=== PATIENT | male | born 1965 | race African-American/Black ===

== ENCOUNTER 2016-07-12 09:11 | Emergency (ER) | payer MEDICAID, OTHER ==
[~2016-07-12] VITALS: Ht 185.4 cm; Wt 69.0 kg
[2016-07-12 09:21] VITALS: BP 147/90
== END 2016-07-12 10:19 | disposition home or self-care (01) ==
LOC: ER 10:08
DX: J02.9 Acute pharyngitis, unspecified (principal); I10 Essential (primary) hypertension; F17.200 Nicotine dependence, unspecified, uncomplicated
CPT/HCPCS: 99281

== ENCOUNTER 2018-04-01 14:18 | Emergency (ER) | payer MEDICAID, OTHER ==
[~2018-04-01] VITALS: Ht 188 cm; Wt 116.0 kg
[2018-04-01] MEDS ORDERED: IPRATROPIUM BROMIDE (0.02%) 0.5MG/2.5ML NEB HHN STA (15:19)
[2018-04-01] MEDS ORDERED: ALBUTEROL (0.083%) 2.5MG/3ML NEB HHN STA (15:19)
[2018-04-01] MEDS ORDERED: PREDNISONE 20MG TABLET PO STA (15:19)
[2018-04-01 15:47] LABS: BASOPHILS % 0.5 % (0.0-2.0); EOSINOPHILS % 3.6 % (0.0-5.0); HEMOGLOBIN. 13.7 g/dL (14.0-18.0); LYMPHOCYTES % 7.4 % (20.0-50.0); MEAN CORPUSCULAR HEMOGLOBIN 29.2 pg (28.0-32.0); MEAN CORPUSCULAR VOLUME 87.4 fL (80.0-94.0); MEAN PLATELET VOLUME 8.5 fl (7.4-10.4); MONOCYTES % 8.9 % (2.0-8.0); NEUTROPHILS % 79.6 % (40.0-76.0); PLATELET 152 x1000/uL (130-400); RED CELL DISTRIBUTION WIDTH 13.3 % (11.6-14.6)
[2018-04-01 15:51] LABS: CHLORIDE 101 mEq/L (98-107)
[2018-04-01 18:08] VITALS: BP 164/84
== END 2018-04-01 18:14 | disposition home or self-care (01) ==
LOC: ER 14:18
DX: J20.9 Acute bronchitis, unspecified (principal); I10 Essential (primary) hypertension; L29.8 Other pruritus; F17.210 Nicotine dependence, cigarettes, uncomplicated; Z71.6 Tobacco abuse counseling
CPT/HCPCS: 36415; 71045; 80053; 85025; 87804; 94640; 99284; 99406; J7512; J7611

== ENCOUNTER 2018-05-01 07:21 | Emergency (ER) | payer MEDICAID, OTHER ==
[~2018-05-01] VITALS: Ht 185.4 cm; Wt 116.0 kg
[2018-05-01] MEDS ORDERED: IBUPROFEN 600MG TABLET PO ONE (08:30)
[2018-05-01 09:02] VITALS: BP 169/100
== END 2018-05-01 10:16 | disposition home or self-care (01) ==
LOC: ER 07:51
DX: M25.571 Pain in right ankle and joints of right foot (principal); F17.200 Nicotine dependence, unspecified, uncomplicated; I10 Essential (primary) hypertension
CPT/HCPCS: 73610; 99283

== ENCOUNTER 2018-05-05 08:30 | Emergency (ER) | payer OTHER ==
[~2018-05-05] VITALS: Ht 185.4 cm; Wt 116.0 kg
[2018-05-05 08:40] VITALS: BP 168/115
== END 2018-05-05 12:06 | disposition left against medical advice (07) ==
LOC: ER 08:30
DX: M25.571 Pain in right ankle and joints of right foot (principal); Z53.21 Procedure and treatment not carried out due to patient leaving prior to being seen by health care provider

== ENCOUNTER 2019-02-09 08:34 | Emergency (ER) | payer OTHER ==
[~2019-02-09] VITALS: Ht 185.4 cm; Wt 115.0 kg
[2019-02-09] MEDS ORDERED: VISCOUS LIDOCAINE 2% 15 ML UDC MM ONE (10:45)
[2019-02-09 11:18] VITALS: BP 164/88
== END 2019-02-09 11:18 | disposition home or self-care (01) ==
LOC: ER 08:34
DX: J02.9 Acute pharyngitis, unspecified (principal); R50.9 Fever, unspecified; I10 Essential (primary) hypertension
CPT/HCPCS: 99282; 99283

== ENCOUNTER 2019-03-30 09:09 | Emergency (ER) | payer OTHER ==
[~2019-03-30] VITALS: Ht 185.4 cm; Wt 116.0 kg
[2019-03-30] MEDS ORDERED: ATEN-42 PO (09:21)
[2019-03-30] MEDS ORDERED: IBUPROFEN 600MG TABLET PO ONE (10:45)
[2019-03-30 11:12] LABS: CLARITY URINE CLEAR (CLEAR); COLOR URINE YELLOW (YELLOW); KETONES URINE NEGATIVE (NEGATIVE); LEUKOCYTE ESTERASE URINE NEGATIVE (NEGATIVE); NITRITE URINE NEGATIVE (NEGATIVE); OCCULT BLOOD URINE 1+ (NEGATIVE); PROTEIN URINE NEGATIVE (NEGATIVE); SPECIFIC GRAVITY URINE 1.013 (1.005-1.030)
[2019-03-30 11:27] LABS: *AMPHETAMINES SCREEN URINE NEGATIVE (NEGATIVE); *BARBITURATES SCREEN URINE NEGATIVE (NEGATIVE); *BENZODIAZEPINES SCREEN URINE NEGATIVE (NEGATIVE); *COCAINE SCREEN URINE NEGATIVE (NEGATIVE)
[2019-03-30 11:28] LABS: CANNABINOID URINE SCREEN NEGATIVE (NEGATIVE); METHADONE URINE SCREEN NEGATIVE (NEGATIVE); OPIATES URINE SCREEN NEGATIVE (NEGATIVE)
[2019-03-30 11:36] LABS: PHENCYCLIDINE URINE SCREEN NEGATIVE (NEGATIVE)
[2019-03-30 12:43] VITALS: BP 140/80
== END 2019-03-30 12:44 | disposition home or self-care (01) ==
LOC: ER 09:09
DX: N43.3 Hydrocele, unspecified (principal); N50.82 Scrotal pain; I10 Essential (primary) hypertension; Y04.0XXA Assault by unarmed brawl or fight, initial encounter; Y93.89 Activity, other specified; Y92.89 Other specified places as the place of occurrence of the external cause; Y99.8 Other external cause status
CPT/HCPCS: 76870; 80305; 81003; 93976; 99284

== ENCOUNTER 2022-08-08 09:16 | Emergency (ER) | payer OTHER ==
[~2022-08-08] VITALS: Ht 185.4 cm; Wt 116.0 kg
[~2022-08-08 09:16] MED LIST: ATEN-42 PO
[2022-08-08 09:24] VITALS: BP 187/94
== END 2022-08-08 14:16 | disposition left against medical advice (07) ==
LOC: ER 09:16
DX: Z53.21 Procedure and treatment not carried out due to patient leaving prior to being seen by health care provider (principal)
CPT/HCPCS: 99281

== ENCOUNTER 2023-06-27 20:42 | Emergency (ER) | payer MEDICAID, OTHER ==
[~2023-06-27] VITALS: Ht 182.9 cm; Wt 104.0 kg
[2023-06-27 20:57] VITALS: O2SAT 99
[2023-06-27 21:44] VITALS: BP 123/69; PULSE 74; RESP 20; TEMP 98.4
[2023-06-27] MEDS ORDERED: CEPH500T MT (23:48)
== END 2023-06-28 06:45 | disposition home or self-care (01) ==
LOC: ER 20:42
DX: L03.012 Cellulitis of left finger (principal); L03.116 Cellulitis of left lower limb; I10 Essential (primary) hypertension
CPT/HCPCS: 93971; 99284

== ENCOUNTER 2023-07-02 10:16 | Emergency (ER) | payer MEDICAID ==
[~2023-07-02] VITALS: Ht 185.4 cm; Wt 116.0 kg
[~2023-07-02 10:16] MED LIST changes: +CEPH500T MT
[2023-07-02 10:25] VITALS: TEMP 98.9; O2SAT 99
[2023-07-02 10:46] LABS: BASOPHILS % 0.1 % (0.0-2.0); EOSINOPHILS % 0.1 % (0.0-5.0); HEMATOCRIT. 26.2 % (42.0-52.0); HEMOGLOBIN. 8.8 g/dL (14.0-18.0); LYMPHOCYTES % 8.6 % (20.0-50.0); MEAN CORPUSCULAR HEMOGLOBIN 29.6 pg (28.0-32.0); MEAN CORPUSCULAR HGB CONC 33.7 g/dL (31.0-37.0); MEAN CORPUSCULAR VOLUME 87.7 fL (80.0-94.0); MEAN PLATELET VOLUME 6.6 fl (7.4-10.4); MONOCYTES % 10.7 % (2.0-8.0); NEUTROPHILS % 80.5 % (40.0-76.0); PLATELET 344 x1000/uL (130-400); RED BLOOD CELL COUNT 2.98 mill/uL (4.7-6.1); RED CELL DISTRIBUTION WIDTH 13.4 % (11.6-14.6); WHITE BLOOD COUNT 14.5 x1000/uL (4.5-11.0)
[2023-07-02 11:20] LABS: POTASSIUM 3.3 mEq/L (3.5-5.1)
[2023-07-02 11:21] LABS: CALCIUM 9.6 mg/dL (8.7-10.4)
[2023-07-02 11:26] LABS: CREATININE 2.9 mg/dL (0.6-1.3)
[2023-07-02 12:54] VITALS: BP 119/79; PULSE 106; RESP 16
[2023-07-02] MEDS: VANCOMYCIN 1G PREMIX 200 ML IV STA (12:54)
== END 2023-07-02 18:57 | disposition left against medical advice (07) ==
LOC: ER 10:16 → EDBEDREQ 12:06 → EDBEDREQTM 14:09 → ER 18:57 → CANBEDREQ 07-03 21:28
DX: L03.116 Cellulitis of left lower limb (principal); F17.200 Nicotine dependence, unspecified, uncomplicated; I10 Essential (primary) hypertension; Z86.59 Personal history of other mental and behavioral disorders; Z53.20 Procedure and treatment not carried out because of patient's decision for unspecified reasons
CPT/HCPCS: 99285; 96365; 93971; 96366; 80048; 82962; 85025; 36415; J3370

== ENCOUNTER 2023-07-05 16:17 | Emergency (ER) | payer OTHER, MEDICAID ==
[~2023-07-05] VITALS: Ht 177.8 cm; Wt 90.0 kg
[2023-07-05 16:20] VITALS: O2SAT 95
[2023-07-05 17:08] LABS: EOSINOPHILS % 3.6 % (0.0-5.0); HEMATOCRIT. 23.6 % (42.0-52.0); HEMOGLOBIN. 8.2 g/dL (14.0-18.0); LYMPHOCYTES % 17.4 % (20.0-50.0); MEAN CORPUSCULAR HEMOGLOBIN 30.4 pg (28.0-32.0); MEAN CORPUSCULAR HGB CONC 34.6 g/dL (31.0-37.0); MEAN CORPUSCULAR VOLUME 87.9 fL (80.0-94.0); MEAN PLATELET VOLUME 6.9 fl (7.4-10.4); MONOCYTES % 8.9 % (2.0-8.0); NEUTROPHILS % 69.1 % (40.0-76.0); PLATELET 322 x1000/uL (130-400); RED BLOOD CELL COUNT 2.68 mill/uL (4.7-6.1); RED CELL DISTRIBUTION WIDTH 13.4 % (11.6-14.6); WHITE BLOOD COUNT 8.3 x1000/uL (4.5-11.0)
[2023-07-05] MEDS: FAMOTIDINE 20MG/2ML VIAL IV ONE (17:09)
[2023-07-05] MEDS: DIPHENHYDRAMINE 50MG/ML VIAL IV ONE (17:09)
[2023-07-05] MEDS: METHYLPREDNISOLONE SOD SUCC 125MG/2ML (ACT-O-VIAL) IV ONE (17:09)
[2023-07-05 17:12] LABS: POTASSIUM 3.5 mEq/L (3.5-5.1)
[2023-07-05 17:14] LABS: CALCIUM 8.4 mg/dL (8.7-10.4)
[2023-07-05 17:18] LABS: CREATININE 2.1 mg/dL (0.6-1.3)
[2023-07-05] MEDS: SODIUM CHLORIDE 0.9% 1,000 ML IV ONE (17:48)
[2023-07-05] MEDS ORDERED: TRANEXAMIC ACID 1,000MG/10ML IV ONE (19:45)
[2023-07-05] MEDS: EPINEPHRINE 1:1000 1 MG/ML AMP IM ONE (21:01)
[2023-07-05] MEDS: TRANEXAMIC ACID 1000MG PREMIX 100 ML IV SCH (21:24)
[2023-07-05 21:52] LABS: PARTIAL THROMBOPLASTIN TIME 24.8 sec (23.4-31.0); PROTHROMBIN TIME 11.2 sec (9.6-11.0)
[2023-07-06] MEDS ORDERED: DIPHENHYDRAMINE 25MG CAPSULE PO PRN (08:45)
[2023-07-06] MEDS ORDERED: FAMOTIDINE 20MG/2ML VIAL IV SCH (09:00)
[2023-07-06] MEDS: HYDRALAZINE 20MG/ML VIAL IV PRN (09:05)
[2023-07-06 09:49] VITALS: BP 151/83; PULSE 75; RESP 16; TEMP 98.5
[2023-07-06] MEDS ORDERED: METHYLPREDNISOLONE SOD SUCC 40MG/ML (ACT-O-VIAL) IV SCH (10:00)
== END 2023-07-06 09:50 | disposition left against medical advice (07) ==
LOC: ER 16:17 → EDBEDREQ 21:11 → CANBEDREQ 07-06 09:32 → ER 07-06 09:50
DX: T78.3XXA Angioneurotic edema, initial encounter (principal); N17.9 Acute kidney failure, unspecified; E87.1 Hypo-osmolality and hyponatremia; I10 Essential (primary) hypertension; F20.9 Schizophrenia, unspecified
CPT/HCPCS: 80048; 85025; 85610; 85730; 86850; 86900; 86901; 36415; 71045; 96365; 96372; 96375 ×2; 99291; J1200; J3490 ×2; J2919; J7030; Z7610; J0360

== ENCOUNTER 2023-07-16 18:19 | Emergency (ER) | payer MEDICAID ==
[~2023-07-16] VITALS: Ht 172.7 cm; Wt 91.0 kg
[2023-07-16 18:26] VITALS: BP 132/65; PULSE 68; RESP 18; TEMP 99.4; O2SAT 99
[2023-07-16] MEDS ORDERED: NEOM28.36 TP (19:44)
== END 2023-07-16 19:52 | disposition home or self-care (01) ==
LOC: ER 18:19
DX: L97.529 Non-pressure chronic ulcer of other part of left foot with unspecified severity (principal); L97.519 Non-pressure chronic ulcer of other part of right foot with unspecified severity; I10 Essential (primary) hypertension; Z86.59 Personal history of other mental and behavioral disorders
CPT/HCPCS: 99283

== ENCOUNTER 2023-10-19 15:15 | Emergency (ER) | payer OTHER ==
[~2023-10-19] VITALS: Ht 182.9 cm; Wt 104.5 kg
[~2023-10-19 15:15] MED LIST changes: +NEOM28.36 TP
[2023-10-19 15:32] VITALS: TEMP 97.2; O2SAT 99
[2023-10-19] MEDS ORDERED: metoprolol (15:32)
[2023-10-19] MEDS ORDERED: haloperidol (15:32)
[2023-10-19] MEDS ORDERED: benztropine (15:32)
[2023-10-19] MEDS ORDERED: chlorthalidone (15:32)
[2023-10-19] MEDS ORDERED: lisinopril (15:32)
[2023-10-19] MEDS ORDERED: escitalopram (15:32)
[2023-10-19] MEDS ORDERED: amlodipine (15:32)
[2023-10-19] MEDS ORDERED: zolpidem (15:32)
[2023-10-19] MEDS ORDERED: atorvastatin (15:32)
[2023-10-19] MEDS ORDERED: divalproex sodium (15:32)
[2023-10-19] MEDS ORDERED: VANCOMYCIN 1G PREMIX 200 ML IV STA (15:51)
[2023-10-19] MEDS: SODIUM CHLORIDE 0.9% 1000ML BAG (SEPSIS BOLUS) IV ONE (16:00)
[2023-10-19 16:17] LABS: BASOPHILS % 0.7 % (0.0-2.0); EOSINOPHILS % 7.4 % (0.0-5.0); HEMATOCRIT. 29.4 % (42.0-52.0); HEMOGLOBIN. 9.9 g/dL (14.0-18.0); LYMPHOCYTES % 15.8 % (20.0-50.0); MEAN CORPUSCULAR HEMOGLOBIN 29.5 pg (28.0-32.0); MEAN CORPUSCULAR HGB CONC 33.8 g/dL (31.0-37.0); MEAN CORPUSCULAR VOLUME 87.3 fL (80.0-94.0); MEAN PLATELET VOLUME 7.2 fl (7.4-10.4); NEUTROPHILS % 68.1 % (40.0-76.0); PLATELET 216 x1000/uL (130-400); RED BLOOD CELL COUNT 3.37 mill/uL (4.7-6.1); RED CELL DISTRIBUTION WIDTH 14.8 % (11.6-14.6); WHITE BLOOD COUNT 4.9 x1000/uL (4.5-11.0)
[2023-10-19 16:20] LABS: CHLORIDE 102 mEq/L (98-107); POTASSIUM 3.3 mEq/L (3.5-5.1); SODIUM 135 mEq/L (136-145)
[2023-10-19 16:21] LABS: CALCIUM 9.1 mg/dL (8.7-10.4); CARBON DIOXIDE 29 mEq/L (21-32)
[2023-10-19 16:26] LABS: GLUCOSE 96 mg/dL (70-105); UREA NITROGEN BLOOD 26 mg/dL (9-23)
[2023-10-19 16:27] LABS: PROTHROMBIN TIME 11.4 sec (9.6-11.0); TROPONIN I HIGH SENSITIVITY 8 ng/L (3.0-53)
[2023-10-19 16:28] LABS: ALANINE AMINOTRANSFERASE < 7 IU/L (10-49); ALBUMIN 3.8 g/dL (3.2-4.8); ASPARTATE AMINOTRANSFERASE 12 IU/L (<34)
[2023-10-19 16:29] LABS: BILIRUBIN TOTAL 0.3 mg/dL (0.1-1.0); PROTEIN TOTAL 7.7 g/dL (6.0-8.3)
[2023-10-19 16:30] LABS: CREATININE 1.9 mg/dL (0.6-1.3)
[2023-10-19 16:48] LABS: CLARITY URINE CLEAR (CLEAR); COLOR URINE YELLOW (YELLOW); GLUCOSE URINE NEGATIVE (NEGATIVE); KETONES URINE NEGATIVE (NEGATIVE); LEUKOCYTE ESTERASE URINE NEGATIVE (NEGATIVE); NITRITE URINE NEGATIVE (NEGATIVE); OCCULT BLOOD URINE NEGATIVE (NEGATIVE); PROTEIN URINE NEGATIVE (NEGATIVE); SPECIFIC GRAVITY URINE 1.012 (1.005-1.030)
[2023-10-19] MEDS: PIPERACILLIN/TAZO 3.375G/50ML 50 ML IV STA (17:01)
[2023-10-19] MEDS: ASPIRIN 81MG TABLET PO ONE (17:09)
[2023-10-19] MEDS: TETANUS, DIPHTHERIA, PERTUSSIS VAC/PF 0.5ML (>10YR OLD) IM ONE (17:10)
[2023-10-19 18:30] VITALS: BP 135/67; PULSE 63; RESP 12; O2SAT 100
== END 2023-10-19 16:19 | disposition left against medical advice (07) ==
LOC: ER 15:15 → EDBEDREQ 18:20 → EDBEDREQTM 18:40 → CANBEDREQ 18:51
DX: R55 Syncope and collapse (principal); I95.9 Hypotension, unspecified; N28.9 Disorder of kidney and ureter, unspecified; E86.0 Dehydration; L03.116 Cellulitis of left lower limb; I10 Essential (primary) hypertension; F17.200 Nicotine dependence, unspecified, uncomplicated; Z88.8 Allergy status to other drugs, medicaments and biological substances
CPT/HCPCS: 80053; 81003; 83880; 83605; 85025; 85610; 87040; 87086; 84484; 36415; 84145; 71045; 73610; 90715; 93005; 90471; 96361; 96365; 99285; Z7610 ×2; J2543; J7030

== ENCOUNTER 2024-03-04 14:10 | Emergency (ER) | payer OTHER ==
[~2024-03-04] VITALS: Ht 175.3 cm; Wt 85.0 kg
[~2024-03-04 14:10] MED LIST changes: +amlodipine; +atorvastatin; +benztropine; +chlorthalidone; +divalproex sodium; +escitalopram; +haloperidol; +lisinopril; +metoprolol; +zolpidem
[2024-03-04 14:14] VITALS: O2SAT 99
[2024-03-04 14:25] VITALS: BP 122/60; PULSE 72; RESP 18; TEMP 98.2; O2SAT 100
== END 2024-03-04 20:11 | disposition left against medical advice (07) ==
LOC: ER 14:10
DX: J20.9 Acute bronchitis, unspecified (principal); Z53.21 Procedure and treatment not carried out due to patient leaving prior to being seen by health care provider

== ENCOUNTER 2024-04-10 08:30 | Emergency (ER) | payer OTHER ==
[~2024-04-10] VITALS: Ht 185.4 cm; Wt 115.0 kg
[2024-04-10 08:41] VITALS: O2SAT 100
[2024-04-10] MEDS: IBUPROFEN 600MG TABLET PO ONE (09:42)
[2024-04-10 12:06] VITALS: BP 148/80; PULSE 88; RESP 18; TEMP 36.8; O2SAT 100
[2024-04-11] MEDS ORDERED: NAPR-681 MT (10:52)
== END 2024-04-10 12:11 | disposition home or self-care (01) ==
LOC: ER 08:30
DX: M20.12 Hallux valgus (acquired), left foot (principal); S93.402A Sprain of unspecified ligament of left ankle, initial encounter; F20.9 Schizophrenia, unspecified; I10 Essential (primary) hypertension; J45.909 Unspecified asthma, uncomplicated; X58.XXXA Exposure to other specified factors, initial encounter; Y93.89 Activity, other specified; Y92.89 Other specified places as the place of occurrence of the external cause; Y99.8 Other external cause status
CPT/HCPCS: 73610; 73630; 99284

== ENCOUNTER 2024-04-11 09:13 | Emergency (ER) | payer OTHER ==
[~2024-04-11] VITALS: Ht 172.7 cm; Wt 75.0 kg
[2024-04-11 09:15] VITALS: TEMP 36.8; O2SAT 99
[2024-04-11 10:15] VITALS: BP 153/82; PULSE 94; RESP 16
[2024-04-11] MEDS: IBUPROFEN 600MG TABLET PO ONE (10:15)
[2024-04-11] MEDS ORDERED: NAPR-681 MT (10:52)
== END 2024-04-11 11:01 | disposition home or self-care (01) ==
LOC: ER 09:22
DX: M79.18 Myalgia, other site (principal); F20.9 Schizophrenia, unspecified; I10 Essential (primary) hypertension; J45.909 Unspecified asthma, uncomplicated; Z79.1 Long term (current) use of non-steroidal anti-inflammatories (NSAID)
CPT/HCPCS: 73610; 73630; 99284

== ENCOUNTER 2024-05-05 18:42 | Emergency (ER) | payer OTHER ==
[~2024-05-05] VITALS: Ht 185.4 cm; Wt 91.0 kg
[~2024-05-05 18:42] MED LIST changes: +NAPR-681 MT
[2024-05-05 18:56] VITALS: TEMP 36.8; O2SAT 98
[2024-05-05] MEDS: KETOROLAC 30MG/ML VIAL IM STA (19:43)
[2024-05-05 21:37] LABS: HEMATOCRIT. 29.5 % (42.0-52.0); HEMOGLOBIN. 9.7 g/dL (14.0-18.0); MEAN CORPUSCULAR HEMOGLOBIN 28.8 pg (28.0-32.0); MEAN CORPUSCULAR HGB CONC 32.9 g/dL (31.0-37.0); MEAN CORPUSCULAR VOLUME 87.5 fL (80.0-94.0); MEAN PLATELET VOLUME 7.9 fl (7.4-10.4); PLATELET 209 x1000/uL (130-400); RED BLOOD CELL COUNT 3.37 mill/uL (4.7-6.1); RED CELL DISTRIBUTION WIDTH 15.8 % (11.6-14.6); WHITE BLOOD COUNT 7.3 x1000/uL (4.5-11.0)
[2024-05-05 21:38] LABS: DIFFERENTIAL COMMENT 1
[2024-05-05 21:47] LABS: CARBON DIOXIDE 29 mEq/L (21-32); CHLORIDE 104 mEq/L (98-107); POTASSIUM 4.3 mEq/L (3.5-5.1); SODIUM 139 mEq/L (136-145)
[2024-05-05 21:48] LABS: CALCIUM 9.1 mg/dL (8.7-10.4)
[2024-05-05 21:53] LABS: GLUCOSE 93 mg/dL (70-105); PLATELET ESTIMATE NORMAL; TROPONIN I HIGH SENSITIVITY 39 ng/L (3.0-53); UREA NITROGEN BLOOD 30 mg/dL (9-23)
[2024-05-05 21:54] LABS: ALANINE AMINOTRANSFERASE 40 IU/L (10-49); ALBUMIN 3.9 g/dL (3.2-4.8); ASPARTATE AMINOTRANSFERASE 36 IU/L (<34)
[2024-05-05 21:55] LABS: BILIRUBIN DIRECT 0.1 mg/dL (<=3.0); BILIRUBIN TOTAL 0.3 mg/dL (0.1-1.0); PROTEIN TOTAL 7.8 g/dL (6.0-8.3)
[2024-05-05] MEDS ORDERED: TOPUD MT (22:09)
[2024-05-05 22:37] VITALS: BP 178/96; PULSE 89; RESP 18; O2SAT 95
== END 2024-05-05 22:57 | disposition home or self-care (01) ==
LOC: ER 18:42
DX: R07.89 Other chest pain (principal); J45.909 Unspecified asthma, uncomplicated; I10 Essential (primary) hypertension; F20.9 Schizophrenia, unspecified; E11.9 Type 2 diabetes mellitus without complications; Z79.1 Long term (current) use of non-steroidal anti-inflammatories (NSAID)
CPT/HCPCS: 80076; 80048; 83690; 85025; 84484; 36415; 71045; 93005; 96372; 99285; J1885; Z7610

== ENCOUNTER 2024-05-12 19:27 | Emergency (ER) | payer OTHER ==
[~2024-05-12] VITALS: Ht 182.9 cm; Wt 105.0 kg
[~2024-05-12 19:27] MED LIST changes: +TOPUD MT
[2024-05-12 19:47] VITALS: BP 164/90; PULSE 88; RESP 18; TEMP 36.7; O2SAT 100
== END 2024-05-12 22:49 | disposition left against medical advice (07) ==
LOC: ER 20:59
DX: R10.84 Generalized abdominal pain (principal); I10 Essential (primary) hypertension; F20.9 Schizophrenia, unspecified; J45.909 Unspecified asthma, uncomplicated; Z53.21 Procedure and treatment not carried out due to patient leaving prior to being seen by health care provider

== ENCOUNTER 2024-05-17 19:36 | Emergency (ER) | payer OTHER ==
[~2024-05-17] VITALS: Ht 175.3 cm; Wt 100.0 kg
[2024-05-17 21:04] LABS: HEMATOCRIT. 29.6 % (42.0-52.0); HEMOGLOBIN. 9.6 g/dL (14.0-18.0); MEAN CORPUSCULAR HGB CONC 32.4 g/dL (31.0-37.0); MEAN CORPUSCULAR VOLUME 89.5 fL (80.0-94.0); MEAN PLATELET VOLUME 8.5 fl (7.4-10.4); PLATELET 193 x1000/uL (130-400); WHITE BLOOD COUNT 8.6 x1000/uL (4.5-11.0)
[2024-05-17 21:06] LABS: DIFFERENTIAL COMMENT 1
[2024-05-17 21:12] LABS: CALCIUM 8.5 mg/dL (8.7-10.4)
[2024-05-17 21:17] LABS: CREATININE 1.6 mg/dL (0.6-1.3)
[2024-05-17 21:59] LABS: ANISOCYTOSIS 1+; PLATELET ESTIMATE NORMAL
[2024-05-18 00:30] VITALS: PULSE 66; RESP 18; O2SAT 98
[2024-05-18] MEDS: IPRATROPIUM/ALBUTEROL 0.5-3(2.5)MG/3ML NEB HHN ONE (00:35)
[2024-05-18] MEDS ORDERED: FUROSEMIDE 40MG/4ML VIAL IVP ONE (02:15)
[2024-05-18 03:30] VITALS: BP 147/83; PULSE 83; RESP 16; TEMP 36.8; O2SAT 100
[2024-05-18 04:28] LABS: TROPONIN I HIGH SENSITIVITY 35 ng/L (3.0-53)
== END 2024-05-18 06:39 | disposition left against medical advice (07) ==
LOC: ER 19:36
DX: R60.0 Localized edema (principal); R06.02 Shortness of breath; F20.9 Schizophrenia, unspecified; J45.909 Unspecified asthma, uncomplicated; I10 Essential (primary) hypertension; Z79.1 Long term (current) use of non-steroidal anti-inflammatories (NSAID)
CPT/HCPCS: 80048; 85025; 36415 ×2; 71045; 93970; 99285; 83880; 84484; 94640; 93005; Z7610 ×3

== ENCOUNTER 2024-09-23 06:43 | Emergency (ER) | payer MEDICAID, OTHER ==
[~2024-09-23] VITALS: Ht 185.4 cm; Wt 112.5 kg
[2024-09-23 06:53] VITALS: O2SAT 98
[2024-09-23 07:43] LABS: HEMATOCRIT. 29.5 % (42.0-52.0); HEMOGLOBIN. 9.6 g/dL (14.0-18.0); MEAN PLATELET VOLUME 6.5 fl (7.4-10.4); PLATELET 318 x1000/uL (130-400); RED BLOOD CELL COUNT 3.49 mill/uL (4.7-6.1); RED CELL DISTRIBUTION WIDTH 15.0 % (11.6-14.6)
[2024-09-23 07:58] LABS: UREA NITROGEN BLOOD 29.0 mg/dL (9-23)
[2024-09-23 07:59] LABS: CREATININE 2.1 mg/dL (0.6-1.3)
[2024-09-23] MEDS: PIPERACILLIN/TAZO 3.375G/50ML 50 ML IV NR (08:18)
[2024-09-23] MEDS: SODIUM CHLORIDE 0.9% (SEPSIS BOLUS) IV ONE (08:18)
[2024-09-23 08:20] LABS: BAND% 4.0 % (1.0-6.0); EOSINOPHILS % MANUAL 2.0 % (0.0-5.0); LYMPHOCYTES % MANUAL 9.0 % (20.0-50.0); MONOCYTES % MANUAL 10.0 % (2.0-8.0); NEUTROPHILS % MANUAL 75.0 % (45.0-75.0); PLATELET ESTIMATE NORMAL
[2024-09-23 08:39] LABS: INR 1.0
[2024-09-23 08:44] LABS: ASPARTATE AMINOTRANSFERASE 18 IU/L (<34); BILIRUBIN DIRECT 0.3 mg/dL (<=3.0); BILIRUBIN TOTAL 0.6 mg/dL (0.1-1.0); PHOSPHORUS 2.7 mg/dL (2.5-4.9); PROTEIN TOTAL 8.3 g/dL (6.0-8.3)
[2024-09-23] MEDS: MORPHINE SULFATE 2 MG/ML INJ (NOT FOR IM USE) IV SCH (09:38)
[2024-09-23] MEDS: MAGNESIUM 1 G PREMIX 100 ML IV NR (09:38)
[2024-09-23] MEDS: VANCOMYCIN 1G PREMIX 200 ML IV NR (09:45)
[2024-09-23 11:25] VITALS: BP 156/79; PULSE 88; RESP 20; TEMP 37.2; O2SAT 98
== END 2024-09-23 11:54 | disposition short-term general hospital (02) ==
LOC: ER 06:43 → CMPBEDREQ 12:38
DX: M79.604 Pain in right leg (principal); J45.909 Unspecified asthma, uncomplicated; I10 Essential (primary) hypertension; F20.9 Schizophrenia, unspecified; G40.909 Epilepsy, unspecified, not intractable, without status epilepticus; F17.200 Nicotine dependence, unspecified, uncomplicated
CPT/HCPCS: 99285; 93970; 96365; 71045; 96367; 96375; 80076; 80048; 83605; 83735; 84100; 85025; 85610; 87040; 36415; 84145; 93005; 96368; J3475; J2543; J3373; J2270; J7030

== ENCOUNTER 2024-09-27 10:33 | Emergency (ER) | payer OTHER ==
[~2024-09-27] VITALS: Ht 185.4 cm; Wt 115.0 kg
[2024-09-27 10:40] VITALS: O2SAT 100
[2024-09-27] MEDS: IBUPROFEN 600MG TABLET PO ONE (11:19)
[2024-09-27] MEDS ORDERED: CEPH500T MT (12:31)
[2024-09-27] MEDS ORDERED: SULF1TAB48 MT (12:31)
[2024-09-27 12:40] VITALS: BP 140/84; PULSE 94; RESP 18; TEMP 36.7; O2SAT 99
== END 2024-09-27 12:40 | disposition home or self-care (01) ==
LOC: ER 10:33
DX: S81.801D Unspecified open wound, right lower leg, subsequent encounter (principal); L02.415 Cutaneous abscess of right lower limb; F20.9 Schizophrenia, unspecified; I10 Essential (primary) hypertension; J45.909 Unspecified asthma, uncomplicated; Z79.1 Long term (current) use of non-steroidal anti-inflammatories (NSAID); Z79.899 Other long term (current) drug therapy; W26.9XXD Contact with unspecified sharp object(s), subsequent encounter
CPT/HCPCS: 99284; 93971; 73590; A6449

== ENCOUNTER 2024-10-04 08:23 | Emergency (ER) | payer OTHER ==
[~2024-10-04] VITALS: Ht 182.9 cm; Wt 113.0 kg
[~2024-10-04 08:23] MED LIST changes: +SULF1TAB48 MT
[2024-10-04 08:30] VITALS: O2SAT 100
[2024-10-04] MEDS ORDERED: CEPH500C2 MT (09:24)
[2024-10-04] MEDS ORDERED: SULF1TAB48 MT (09:24)
[2024-10-04] MEDS ORDERED: BO1 TP (09:24)
[2024-10-04 09:45] VITALS: BP 172/90; PULSE 67; RESP 18; TEMP 36.5; O2SAT 100
== END 2024-10-04 10:17 | disposition home or self-care (01) ==
LOC: ER 08:23
DX: L08.9 Local infection of the skin and subcutaneous tissue, unspecified (principal); J45.909 Unspecified asthma, uncomplicated; I10 Essential (primary) hypertension; F20.9 Schizophrenia, unspecified; Z79.899 Other long term (current) drug therapy
CPT/HCPCS: 99283